=== PATIENT | female | born 1930 | race Two or more races ===

== ENCOUNTER 2019-06-16 11:03 | Emergency (ER) | payer OTHER ==
[~2019-06-16] VITALS: Ht 160 cm; Wt 46.7 kg
[2019-06-16] MEDS ORDERED: LISINOPRIL 20 MG TAB PO ONE (13:45)
[2019-06-16 14:01] VITALS: BP 168/62
== END 2019-06-16 14:57 | disposition short-term general hospital (02) ==
LOC: EDBD 11:03 → ER 11:05
DX: S22.20XA Unspecified fracture of sternum, initial encounter for closed fracture (principal); R04.89 Hemorrhage from other sites in respiratory passages; K21.9 Gastro-esophageal reflux disease without esophagitis; I10 Essential (primary) hypertension; V47.5XXA Car driver injured in collision with fixed or stationary object in traffic accident, initial encounter; Y93.I9 Activity, other involving external motion; Y92.488 Other paved roadways as the place of occurrence of the external cause; Y99.8 Other external cause status
CPT/HCPCS: 71045; 71250; 82962; 93005

== ENCOUNTER 2020-03-03 16:46 | Inpatient (IN) | payer OTHER ==
[~2020-03-03] VITALS: Ht 160 cm; Wt 44.0 kg
[~2020-03-03 16:46] MED LIST: LISI10TA6 PO; METF500T PO
[2020-03-03 18:45] LABS: Basophils # (auto) 0 10 ^3/uL (0-0.2); Basophils % (auto) 0.6 % (0.0-2.0); Eosinophils # (auto) 0.1 10 ^3/uL (0-0.8); Eosinophils % (auto) 2.3 % (0.0-7.0); Hematocrit 32.6 % (36.0-46.0); Hemoglobin 10.7 g/dL (12.2-16.2); Lymphocytes # (auto) 0.4 10 ^3/uL (0.4-5.4); Lymphocytes % (auto) 9.7 % (10.0-50.0); Mean Corpuscular Hemoglobin 30.1 pg (28.0-32.0); Mean Corpuscular Hgb Conc. 32.8 g/dL (32.0-36.0); Mean Corpuscular Volume 91.8 fL (80.0-100.0); Monocytes # (auto) 0.2 10 ^3/uL (0-1.3); Monocytes % (auto) 6.2 % (0.0-12.0); Neutrophils % (auto) 81.2 % (37.0-80.0); Nucleated Red Blood Cells % 0.1 %; Platelet Count (auto) 255 10^3/uL (140-450); Red Blood Cells 3.55 10^6/uL (4.0-5.20); Red Cell Distribution Width 14.2 % (11.8-14.3); White Blood Cell 3.7 10^3/uL (4.4-10.8)
[2020-03-03 19:02] LABS: Albumin 3.6 g/dL (3.4-5.0); BUN/Creatinine Ratio 47.6; Calcium 8.9 mg/dL (8.5-10.1); Magnesium 1.6 mg/dL (1.6-2.6)
[2020-03-03 19:08] LABS: Bilirubin, Total 0.2 mg/dL (0.2-1.0); Total Protein 7.4 g/dL (6.4-8.2)
[2020-03-03 19:10] LABS: Potassium 2.9 mmol/L (3.5-5.1)
[2020-03-03] MEDS ORDERED: POTASSIUM EFFERVESENT TAB 25 MEQ PO ONE (19:15)
[2020-03-03 20:07] LABS: Urine Bacteria FEW /hpf (None Seen); Urine Blood Negative /uL (Negative); Urine Specific Gravity 1.009 (1.001-1.035); Urine WBC 14 /hpf (0 - 5)
[2020-03-03] MEDS ORDERED: POTASSIUM CHL 20MEQ/100ML 100 ML IV ONE (21:00)
[2020-03-03] MEDS ORDERED: cefTRIAXone 1GM/50ML D5W 50 ML IV ONE (21:00)
[2020-03-03] MEDS ORDERED: NITROGLYCERIN 0.4 MG SL TAB SL PRN (21:15)
[2020-03-03] MEDS ORDERED: ALUM & MAG HYDROX-SIMETH LIQ(MAALOX) 30 ML PO PRN (21:15)
[2020-03-03] MEDS ORDERED: LORazepam 0.5 MG TAB PO PRN (21:15)
[2020-03-03] MEDS ORDERED: hydrALAZINE HCL 20 MG/ML VL IV PRN (21:15)
[2020-03-03] MEDS ORDERED: DOCUSATE SOD 100 MG CAP PO PRN (21:15)
[2020-03-03] MEDS ORDERED: METOCLOPRAMIDE HCL 5MG/ml INJ 2ml VIAL IV PRN (21:15)
[2020-03-03] MEDS ORDERED: DEXTROSE (50%) 50ML SYRG IV PRN (21:15)
[2020-03-03] MEDS ORDERED: ENOXAPARIN SOD 40 MG/0.4 ML SYRINGE SC ONE (21:15)
[2020-03-03] MEDS ORDERED: MORPHINE SULF INJ 2 MG/ML SYRINGE 1ML IV PRN ×2 (21:15)
[2020-03-03] MEDS ORDERED: HYDROcodone-ACET 5/325MG TAB PO PRN (21:15)
[2020-03-03 21:26] LABS: Cholesterol 177 mg/dL (< 200); Triglycerides 28 mg/dL (< 150)
[2020-03-03 21:29] LABS: HDL Cholesterol 110 mg/dL (40-59); LDL Cholesterol 65 mg/dL (< 100)
[2020-03-03] MEDS ORDERED: LATANOPROST 0.005 % OPTH(EYE) SOL 2.5ML EACHEYE SCH (22:00)
[2020-03-03] MEDS: InsuLIN REG 1unit/0.01ml Soln (100units/ml) SC SCH (22:00)
--- NOTE | 2020-03-03 22:30 | NUR ---
MS admit from ER LES EVANS admitted to tele/MS. Patient oriented to KELLEN BRIZUELA RN primary RN, room 279, bed A. Patient weighed by bedscale and encouraged to use call light if they need assistance. Patient A&O x4, no signs or symptoms of distress or SOB. Call light within reach, bed locked, in lowest position, side rails up x2, bed alarm on. All questions and concerns addressed, patient verbalized understanding. Will continue with care.
[2020-03-03] MEDS: ACCU-CHEK COMFORT CURVE STRIP VI SCH (22:38)
[2020-03-03] MEDS: SOD CHL 0.45% WITH 20MEQ KCL 1,000 ML IV SCH (22:47)
[2020-03-03 23:14] VITALS: BP 150/66
[2020-03-03] MEDS ORDERED: GEMF600T7 PO (23:41)
[2020-03-03] MEDS ORDERED: HYDR25TA4 PO (23:41)
[2020-03-03] MEDS ORDERED: ESTR1TAB3 PO (23:41)
[2020-03-03] MEDS ORDERED: LEVO50TA7 PO (23:41)
[2020-03-03] MEDS ORDERED: ASPI-404 PO (23:41)
[2020-03-03] MEDS ORDERED: AMLO5TAB15 PO (23:41)
[2020-03-03] MEDS ORDERED: DOXA1TAB28 PO (23:41)
[2020-03-03 23:46] VITALS: BP 150/66
[2020-03-04] VITALS (7 sets, daily range): BP systolic 129–157; BP diastolic 47–58
[2020-03-04 05:44] LABS: Basophils # (auto) 0 10 ^3/uL (0-0.2); Basophils % (auto) 0.5 % (0.0-2.0); Eosinophils # (auto) 0.2 10 ^3/uL (0-0.8); Eosinophils % (auto) 5.3 % (0.0-7.0); Hematocrit 28.9 % (36.0-46.0); Hemoglobin 9.7 g/dL (12.2-16.2); Lymphocytes # (auto) 0.6 10 ^3/uL (0.4-5.4); Lymphocytes % (auto) 16.9 % (10.0-50.0); Mean Corpuscular Hemoglobin 30.5 pg (28.0-32.0); Mean Corpuscular Hgb Conc. 33.5 g/dL (32.0-36.0); Mean Corpuscular Volume 90.8 fL (80.0-100.0); Monocytes # (auto) 0.4 10 ^3/uL (0-1.3); Monocytes % (auto) 9.8 % (0.0-12.0); Neutrophils # (auto) 2.5 10 ^3/uL (1.6-8.6); Neutrophils % (auto) 67.5 % (37.0-80.0); Nucleated Red Blood Cells % 0.1 %; Platelet Count (auto) 270 10^3/uL (140-450); Red Blood Cells 3.18 10^6/uL (4.0-5.20); Red Cell Distribution Width 13.8 % (11.8-14.3); White Blood Cell 3.7 10^3/uL (4.4-10.8)
[2020-03-04 05:57] LABS: INR 1.12 (0.9-1.15); Partial Thromboplastin Time 34.7 sec (23.64-32.05)
[2020-03-04 06:03] LABS: Albumin 3.2 g/dL (3.4-5.0); Calcium 8.1 mg/dL (8.5-10.1); Magnesium 1.6 mg/dL (1.6-2.6); Potassium 3.5 mmol/L (3.5-5.1)
[2020-03-04 06:10] LABS: BUN/Creatinine Ratio 40.8; Bilirubin, Total 0.2 mg/dL (0.2-1.0); Phosphorus 2.2 mg/dL (2.5-4.90); Total Protein 6.4 g/dL (6.4-8.2)
[2020-03-04] MEDS: ACCU-CHEK COMFORT CURVE STRIP VI SCH ×3 (06:22→17:00)
[2020-03-04] MEDS: InsuLIN REG 1unit/0.01ml Soln (100units/ml) SC SCH ×3 (06:22→17:00)
[2020-03-04] MEDS: SOD CHL 0.45% WITH 20MEQ KCL 1,000 ML IV SCH (06:23)
[2020-03-04] MEDS ORDERED: LEVOTHYROXINE SODIUM 50 MCG TAB PO SCH (07:00)
--- NOTE | 2020-03-04 07:30 | NUR ---
Opening Shift Note Assumed care of patient, who is alert and oriented x4. Respirations are even and unlabored. No S/S of distress/SOB or pain. Bed is low, locked with 2x side rails up. Call light is within reach. Instructed on POC and to call for assist PRN, will continue to monitor for changes Q1hr and PRN.
[2020-03-04] MEDS ORDERED: cefTRIAXone 1GM/50ML D5W 50 ML IV SCH (09:00)
[2020-03-04] MEDS ORDERED: LISINOPRIL 10 MG TAB PO SCH (10:00)
[2020-03-04] MEDS ORDERED: ENOXAPARIN SOD 30 MG/0.3 ML SYRINGE SC SCH (10:00)
[2020-03-04] MEDS ORDERED: CIPR-173 PO (10:43)
[2020-03-04] MEDS ORDERED: LISI10TA6 PO (10:43)
[2020-03-04] MEDS ORDERED: POTASSIUM EFFERVESENT TAB 25 MEQ PO ONE (10:45)
--- NOTE | 2020-03-04 12:30 | NUR ---
Orthostatic VS Orthostatic VS done per MD orders. (see interventions)
--- NOTE | 2020-03-04 14:56 | NUR ---
Assessment Patient is an 89-year-old female who is alert and oriented. Prior to admission patient lived home with her son Royal and function independently. Patient can care for her own ADLs. Patient does not have any medical equipment now. Patient stated she does not need any medical equipment at this time. Patient will return home to her prior living arrangement post discharge and her son will transport her home. Advised patient there is a Social Service consult for home health hypertension and BP checks. Informed patient clinical information will be faxed to [facility] and [facility]. Informed patient she has a right to participate in all discharge planning. Patient verbalized understanding and agreed to discharge plan. Remi Verduzco with [facility] Ph: ) patient has been accepted and service to start within 24-48hrs upon d/c day. Addendum: 03/04/20 at 1457 by JANICE ROGERS Amended: Links added.
--- NOTE | 2020-03-04 15:51 | NUR ---
Spoke with Dr. David Patient has a cardiology consult pending. Per Dr. David, okay to discharge patient. Will carry out orders.
--- NOTE | 2020-03-04 18:29 | NUR ---
Discharge instructions given as ordered. Encourage to follow up with PMD as instructed. Educated patient on medications and to stop certain medications as ordered by the doctor. Patient verbalized understanding. All questions and concerns addressed. IV removed with catheter intact, pressure dressing applied. Telemetry unit returned to ICU. Patient taken to vehicle via wheelchair with all personal belongings, accompanied by staff No distress noted at time of departure.
== END 2020-03-04 18:30 | disposition home or self-care (01) | DRG 690 ==
LOC: ER 16:46 → TELE-WESTW 16:47 → TELE 16:47 → UNDOADMIN 16:47
PROVIDERS: ADMIT Hospitalist; ATTEND Hospitalist
DX: N39.0 Urinary tract infection, site not specified (principal); E87.1 Hypo-osmolality and hyponatremia; R64 Cachexia; Z68.1 Body mass index [BMI] 19.9 or less, adult; E87.6 Hypokalemia; D64.9 Anemia, unspecified; R79.89 Other specified abnormal findings of blood chemistry; E03.9 Hypothyroidism, unspecified; I10 Essential (primary) hypertension; E11.9 Type 2 diabetes mellitus without complications; D72.810 Lymphocytopenia; E78.5 Hyperlipidemia, unspecified; H40.9 Unspecified glaucoma; K21.9 Gastro-esophageal reflux disease without esophagitis; T50.2X5A Adverse effect of carbonic-anhydrase inhibitors, benzothiadiazides and other diuretics, initial encounter; Y92.89 Other specified places as the place of occurrence of the external cause; Z82.49 Family history of ischemic heart disease and other diseases of the circulatory system
CPT/HCPCS: 36415; 70450; 71045; 80053; 80061; 81001; 82962; 83036; 83735; 83880; 84100; 84484; 85025; 85610; 85730; 87040; 87086; 93005; 93306; 97163; G0378; J0696; J1815; J3480